=== PATIENT | female | born 1990 | race Caucasian/White ===

== ENCOUNTER 2020-08-15 10:32 | Outpatient (REF) | payer OTHER, MEDICAID, SELFPAY ==
--- NOTE | 2020-08-15 09:30 | PAPFT_PTH ---
PATIENT: Zainab Sanchez [facility] U#:[id number] AGE/SX: 29/F ROOM: RE08/15/[address]: Naomie Plascencia : 1990 BED: DIS: 08/15/2020 SPEC #: [id number] RECD: 08/16/20 13:08 STATUS: REBECCA REQ #: [id number] BARON: 08/15/20 09:[address]: Naomie Plascencia DEPT: [facility] Cytology RECD BY: Rosina Longoria ENTERED: 08/16/20 13:08 SP TYPE: PAPFT OTHR DR: Precious Nguyen Tissues: 1 - CX/ENDOCX FOR PAP SMEARS Procedures: PAP THIN PREP/[facility] Screening Comments: [id number] (CHLAMYDIA/GC)
[2020-08-17 15:40] LABS: Chlamydia Result Negative (Negative); GC Result Negative (Negative)
== END 2020-08-15 10:52 ==
LOC: NCHCN 10:32
PROVIDERS: PCP Nurse Practitioner Family; Visit Provider Nurse Practitioner Family
DX: Z00.00 Encounter for general adult medical examination without abnormal findings (principal); Z12.4 Encounter for screening for malignant neoplasm of cervix; Z01.419 Encounter for gynecological examination (general) (routine) without abnormal findings
CPT/HCPCS: 87491; 87591; 88142

== ENCOUNTER 2021-06-05 12:34 | Outpatient (REF) | payer MEDICAID, SELFPAY ==
[2021-06-06 11:49] LABS: COVID-19 RT-PCR UVMMC Result Negative (Negative)
== END 2021-06-05 12:35 | disposition home or self-care (01) ==
LOC: NCHCN 12:34
PROVIDERS: PCP Nurse Practitioner Family; Visit Provider Nurse Practitioner Family
DX: Z20.822 Contact with and (suspected) exposure to COVID-19 (principal)
CPT/HCPCS: U0003

== ENCOUNTER 2021-08-05 01:50 | Outpatient (CLI) | payer MEDICAID, SELFPAY ==
[2021-08-07 10:02] LABS: HBs Antibody, Quant >1000.0 mIU/mL (See Note); Hepatitis B Surface Ab Positive (See Note)
[2021-08-07 10:11] LABS: Hepatitis B Surface Ag Negative (Negative)
[2021-08-07 12:20] LABS: TB Interpretation Negative (Negative); TB1 Ag minus Nil 0.03 IU/ml
== END 2021-08-05 01:51 | disposition home or self-care (01) ==
LOC: LBO 01:50
PROVIDERS: PCP Nurse Practitioner Family; Visit Provider Dermatology
DX: L40.0 Psoriasis vulgaris (principal); Z79.899 Other long term (current) drug therapy
CPT/HCPCS: 36415; 86706; 87340; 86480

== ENCOUNTER 2021-09-17 08:49 | Outpatient (REF) | payer MEDICAID, SELFPAY ==
[2021-09-18 15:04] LABS: COVID-19 RT-PCR UVMMC Result Negative (Negative)
== END 2021-09-17 08:50 | disposition home or self-care (01) ==
LOC: NCHCN 08:49
PROVIDERS: PCP Nurse Practitioner Family; Visit Provider Nurse Practitioner Family
DX: Z20.822 Contact with and (suspected) exposure to COVID-19 (principal)
CPT/HCPCS: U0003

== ENCOUNTER 2022-02-04 03:21 | Outpatient (CLI) | payer MEDICAID, SELFPAY ==
[2022-02-06 12:09] LABS: TB Interpretation Negative (Negative); TB2 Ag minus Nil 0.01 IU/mL
== END 2022-02-04 03:22 | disposition home or self-care (01) ==
PROVIDERS: PCP Nurse Practitioner Family; Visit Provider Dermatology
DX: L40.9 Psoriasis, unspecified (principal)
CPT/HCPCS: 36415; 86480

== ENCOUNTER 2023-01-16 16:29 | Outpatient (REF) | payer MEDICAID, SELFPAY ==
[2023-01-16 21:18] LABS: HGB 14.8 g/dL (11.2-15.7); MCH 30.8 pg (27.0-33.0); MCHC 34.4 % (32.0-36.0); MCV 90 fL (80-95); MPV 9.3 fL (8.0-11.0); Platelet Count 508 10^3/uL (130-400); RDW 12.2 % (11.7-14.6); RDW-SD 40.5 fL; WBC 10.59 10^3/uL (4.4-10.8)
[2023-01-16 21:32] LABS: ALT 51 U/L (14-59); AST 41 U/L (15-37); Alkaline Phosphatase 76 U/L (46-116); BUN 11 mg/dL (7-18); Bilirubin, Total 0.3 mg/dL (0.2-1.0); CREATININE 0.9 mg/dL (0.55-1.02); Calcium 9.4 mg/dL (8.5-10.1); Chloride 104 mmol/L (98-107); Glucose 128 mg/dL (74-106); Potassium 4.3 mmol/L (3.5-5.1); Sodium 141 mmol/L (136-145); Total Protein 7.9 g/dL (6.4-8.2)
== END 2023-01-16 16:30 | disposition home or self-care (01) ==
LOC: NCHCN 16:29
PROVIDERS: PCP Nurse Practitioner Family; Visit Provider Nurse Practitioner Family
DX: Z00.00 Encounter for general adult medical examination without abnormal findings (principal); L40.9 Psoriasis, unspecified; L68.0 Hirsutism
CPT/HCPCS: 80053; 85027

== ENCOUNTER 2023-03-05 11:35 | Outpatient (CLI) | payer MEDICAID, SELFPAY ==
--- NOTE | 2023-03-05 11:33 | DI.RAD_ITS ---
Exam(s) XR KNEE RT 4V AP,LAT,MILTON,PAT EXAM: XR KNEE RT 4V AP,LAT,MILTON,PAT CLINICAL HISTORY: pain; okay to modify per Ana. TECHNIQUE: 2D digital imaging was performed. COMPARISON: No exams were available for comparison FINDINGS: Four views There is no evidence fracture but there is a joint effusion. On the lateral view there is a indentat ion of articular surface of 1 of the femoral condyles. This is sometimes seen with internal derangem ents such as ACL injury with associated pivot shift contusion. IMPRESSION: As above. If clinically indicated follow-up MRI can be performed for added sensitivity and specifici ty. DATA REPOSITORY: RADIATION DOSE DELIVERED:
== END 2023-03-05 11:36 | disposition home or self-care (01) ==
LOC: DIORS 11:35
PROVIDERS: PCP Nurse Practitioner Family; Referring Provider Nurse Practitioner Family; Visit Provider Physician Assistant
DX: M25.561 Pain in right knee (principal)
CPT/HCPCS: 73564

== ENCOUNTER → 2023-06-03 00:49 | Outpatient (CLI) | payer MEDICAID, SELFPAY ==
--- NOTE | 2023-06-03 07:15 | DI.MRI_ITS ---
Exam(s) MR LOWER JOINT RT WO EXAM: MR LOWER JOINT RT WO CLINICAL HISTORY: patellar instability,rt knee pain, [id number]. TECHNIQUE: Multiplanar multisequence MRI was performed. COMPARISON: CR XR KNEE RT 4V AP,LAT,MILTON,PAT from 03/05/2023 FINDINGS: BONES: There is no fracture or contusion pattern. JOINTS: Small joint effusion is present. Articular cartilage: Patellofemoral joint: Articular cartilage is unremarkable. Medial femoral tibial joint: Articular cartilage is unremarkable. Lateral femoral tibial joint: Articular cartilage is unremarkable. TENDONS: Extensor mechanism: Unremarkable. Medial retinaculum: Unremarkable. Lateral retinaculum: Unremarkable. Popliteus: Unremarkable. MUSCLES: Unremarkable. MENISCI: The medial meniscus is unremarkable. The lateral meniscus is unremarkable. SOFT TISSUES: Mild anterior subcutaneous edema. LIGAMENTS: Anterior Cruciate: Unremarkable. Posterior Cruciate: Unremarkable. Medial Collateral:Unremarkable. Lateral Collateral: Unremarkable. OTHER: IMPRESSION: No evidence tendon or ligament tear. No evidence of meniscal tear. Small joint effusion. DATA REPOSITORY:
== END ==
PROVIDERS: PCP Nurse Practitioner Family; Visit Provider Student in an Organized Health Care Education/Training Program
DX: M25.561 Pain in right knee (principal)
CPT/HCPCS: 73721

== ENCOUNTER 2023-12-24 21:41 | Outpatient (REF) | payer MEDICAID, SELFPAY ==
[2023-12-24 21:35] LABS: HCT 43.5 % (36.0-46.0); HGB 14.6 g/dL (11.2-15.7); MCH 30.5 pg (27.0-33.0); MCHC 33.6 % (32.0-36.0); MCV 91 fL (80-95); MPV 9.3 fL (8.0-11.0); Platelet Count 557 10^3/uL (130-400); RBC 4.79 10^6/uL (3.93-5.22); RDW 12.8 % (11.7-14.6); RDW-SD 42.6 fL; WBC 12.31 10^3/uL (4.4-10.8)
[2023-12-24 21:48] LABS: Iron 61 ug/dL (50-170); Total Iron Binding Capacity 319 ug/dL (250-450); Transferrin Sat 19 % (15-50)
[2023-12-24 22:01] LABS: ALT 56 U/L (14-59); AST 49 U/L (15-37); Albumin 4.1 g/dL (3.4-5.0); Alkaline Phosphatase 77 U/L (46-116); Anion Gap 13.9 mmol/L (3-11); BUN 9 mg/dL (7-18); Bilirubin, Total 0.3 mg/dL (0.2-1.0); CO2 25.1 mmol/L (21.0-32.0); CREATININE 0.9 mg/dL (0.55-1.02); Calcium 9.8 mg/dL (8.5-10.1); Chloride 101 mmol/L (98-107); Estimated GFR 87.65 (mL/min/1.73m2); Ferritin 146 ng/mL (8-252); Glucose 120 mg/dL (74-106); Potassium 4.2 mmol/L (3.5-5.1); Sodium 140 mmol/L (136-145); TSH (W/Ref FT4) 17.78 uIU/mL (0.36-3.74); Total Protein 8.1 g/dL (6.4-8.2)
[2023-12-24 22:07] LABS: Vitamin D 25 Total 30.2 ng/mL (30-100)
[2023-12-24 22:17] LABS: FREE T4 0.81 ng/dL (0.76-1.46)
== END 2023-12-24 21:42 | disposition home or self-care (01) ==
LOC: NCHCN 21:41
PROVIDERS: PCP Nurse Practitioner Family; Visit Provider Nurse Practitioner Family
DX: R53.83 Other fatigue (principal)
CPT/HCPCS: 80053; 82306; 85027; 82728; 83540; 83550; 84439; 84443

== ENCOUNTER 2024-02-19 14:45 | Outpatient (REF) | payer MEDICAID, SELFPAY ==
[2024-02-19 15:45] LABS: TSH (W/Ref FT4) 0.42 uIU/mL (0.36-3.74)
== END 2024-02-19 14:46 | disposition home or self-care (01) ==
LOC: NCHCN 14:45
PROVIDERS: PCP Nurse Practitioner Family; Visit Provider Nurse Practitioner Family
DX: E03.9 Hypothyroidism, unspecified (principal)
CPT/HCPCS: 84443

== ENCOUNTER 2024-05-19 21:58 | Outpatient (REF) | payer MEDICAID, SELFPAY ==
[2024-05-19 22:11] LABS: TSH (W/Ref FT4) 0.19 uIU/mL (0.36-3.74)
[2024-05-19 22:29] LABS: FREE T4 1.47 ng/dL (0.76-1.46)
== END 2024-05-19 21:59 | disposition home or self-care (01) ==
LOC: NCHCN 21:58
PROVIDERS: PCP Nurse Practitioner Family; Referring Provider Nurse Practitioner Family; Visit Provider Nurse Practitioner Family
DX: E03.9 Hypothyroidism, unspecified (principal)
CPT/HCPCS: 84439; 84443

== ENCOUNTER 2024-12-23 09:05 | Outpatient (REF) | payer BC, SELFPAY ==
[2024-12-23 15:18] LABS: Abs Immature Grans 0.03 10^3/uL (0.0-0.06); Absolute Basophil Count 0.04 10^3/uL (0.0-0.2); Absolute Eosinophil Count 0.12 10^3/uL (0.0-0.7); Absolute Lymphocyte Count 1.94 10^3/uL (1.2-3.4); Absolute Monocyte Count 0.64 10^3/uL (0.1-0.8); Absolute Neutrophil Count 5.89 10^3/uL (1.2-6.7); Basophils % 0.5 %; Eosinophils % 1.4 %; HCT 44.9 % (36.0-46.0); HGB 14.7 g/dL (11.2-15.7); Immature Grans % 0.3 %; Lymphocytes % 22.4 %; MCH 30.6 pg (27.0-33.0); MCHC 32.7 % (32.0-36.0); MCV 94 fL (80-95); MPV 9.3 fL (8.0-11.0); Monocytes % 7.4 %; Platelet Count 530 10^3/uL (130-400); RDW 12.5 % (11.7-14.6); RDW-SD 43.1 fL; WBC 8.66 10^3/uL (4.4-10.8)
[2024-12-23 15:39] LABS: ALT 50 U/L (14-59); AST 45 U/L (15-37); Albumin 3.9 g/dL (3.4-5.0); Alkaline Phosphatase 79 U/L (46-116); Anion Gap 9.8 mmol/L (3-11); BUN 11 mg/dL (7-18); Bilirubin, Total 0.35 mg/dL (0.2-1.0); CO2 28.2 mmol/L (21.0-32.0); CREATININE 0.8 mg/dL (0.55-1.02); Calcium 9.4 mg/dL (8.5-10.1); Chloride 102 mmol/L (98-107); Estimated GFR 100.33 (mL/min/1.73m2); Glucose 122 mg/dL (74-106); Potassium 4.3 mmol/L (3.5-5.1); Sodium 140 mmol/L (136-145); TSH (W/Ref FT4) 5.13 uIU/mL (0.36-3.74); Total Protein 7.9 g/dL (6.4-8.2)
[2024-12-23 22:58] LABS: T4, Free 1.3 ng/dL (0.8-2.2)
== END 2024-12-23 09:06 | disposition home or self-care (01) ==
LOC: NCHCN 09:05
PROVIDERS: PCP Nurse Practitioner Family; Visit Provider Nurse Practitioner Family
DX: E03.9 Hypothyroidism, unspecified (principal); D75.839 Thrombocytosis, unspecified; Z51.81 Encounter for therapeutic drug level monitoring
CPT/HCPCS: 80053; 84439; 84443; 85025

== ENCOUNTER 2025-02-02 07:45 | Outpatient (CLI) | payer BC, SELFPAY ==
--- NOTE | 2025-02-02 08:52 | W.CARDEVENT ---
Date of service: 02/02/25 Time of Service: 08:52 Cardiac Event Recorder Referring Provider:: Naomie Plascencia Indications:: Palpitations Cardiac Event Note: This is a cardiac event monitor. Patient was monitored for 13 days and 13 hours. Rhythm throughout was sinus with an average heart rate of 95. Minimum was 55, maximum 152. There were very rare isolated atrial and ventricular ectopic beats. There was no atrial fibrillation, no high-grade AV block, no pauses greater than 3 seconds. Reported symptoms correlated predominantly to sinus rhythm, rarely to sinus tachycardia rate less than 105
== END 2025-02-02 07:46 | disposition home or self-care (01) ==
LOC: CARDOPNVT 07:45
PROVIDERS: PCP Nurse Practitioner Family; Visit Provider Internal Medicine Cardiovascular Disease
DX: R00.2 Palpitations (principal)
CPT/HCPCS: 93248

== ENCOUNTER 2025-03-22 09:58 | Outpatient (REF) | payer BC, SELFPAY ==
[2025-03-22 16:22] LABS: Abs Immature Grans 0.04 10^3/uL (0.0-0.06); Absolute Basophil Count 0.03 10^3/uL (0.0-0.2); Absolute Eosinophil Count 0.16 10^3/uL (0.0-0.7); Absolute Lymphocyte Count 2.08 10^3/uL (1.2-3.4); Absolute Monocyte Count 0.56 10^3/uL (0.1-0.8); Absolute Neutrophil Count 6.93 10^3/uL (1.2-6.7); Basophils % 0.3 %; Eosinophils % 1.6 %; HGB 14.8 g/dL (11.2-15.7); Immature Grans % 0.4 %; Lymphocytes % 21.2 %; MCH 30.6 pg (27.0-33.0); MCHC 32.9 % (32.0-36.0); MCV 93 fL (80-95); MPV 9.4 fL (8.0-11.0); Monocytes % 5.7 %; Neutrophils % 70.8 %; Platelet Count 531 10^3/uL (130-400); RBC 4.84 10^6/uL (3.93-5.22); RDW 13.1 % (11.7-14.6); RDW-SD 44.8 fL
[2025-03-22 20:11] LABS: TSH (W/Ref FT4) 4.09 uIU/mL (0.36-3.74)
[2025-03-22 20:54] LABS: FREE T4 1.09 ng/dL (0.76-1.46)
== END 2025-03-22 09:59 | disposition home or self-care (01) ==
LOC: NCHCN 09:58
PROVIDERS: PCP Nurse Practitioner Family; Visit Provider Nurse Practitioner Family
DX: E03.9 Hypothyroidism, unspecified (principal); D75.839 Thrombocytosis, unspecified; Z51.81 Encounter for therapeutic drug level monitoring
CPT/HCPCS: 84439; 84443; 85025

== ENCOUNTER 2025-10-05 15:49 | Outpatient (REF) | payer BC, SELFPAY ==
[2025-10-05 21:42] LABS: Abs Immature Grans 0.02 10^3/uL (0.0-0.06); HCT 45.9 % (36.0-46.0); HGB 15.3 g/dL (11.2-15.7); Immature Grans % 0.2 %; MCH 30.9 pg (27.0-33.0); MCHC 33.3 % (32.0-36.0); MCV 93 fL (80-95); MPV 9.2 fL (8.0-11.0); Platelet Count 598 10^3/uL (130-400); RBC 4.95 10^6/uL (3.93-5.22); RDW 12.7 % (11.7-14.6); RDW-SD 43.1 fL; WBC 8.35 10^3/uL (4.4-10.8)
[2025-10-05 21:43] LABS: TSH (W/Ref FT4) 2.43 uIU/mL (0.55-4.78)
[2025-10-05 21:44] LABS: ALT 43 U/L (10-49); AST 50 U/L (<34); Albumin 4.6 g/dL (3.2-5.0); Alkaline Phosphatase 71 U/L (46-116); Anion Gap 8.2 mmol/L (3-11); BUN 12 mg/dL (9-23); Bilirubin, Total 0.2 mg/dL (0.2-1.2); CO2 27.8 mmol/L (20.0-31.0); Calcium 9.5 mg/dL (8.3-10.6); Chloride 104 mmol/L (98-107); Glucose 96 mg/dL (74-106); Potassium 4.4 mmol/L (3.5-5.1); Sodium 140 mmol/L (136-145); Total Protein 7.6 g/dL (5.7-8.2)
[2025-10-05 22:04] LABS: Hemoglobin A1C 5.4 % (<5.7)
[2025-10-05 22:11] LABS: Cholesterol 204 mg/dL (<200); HDL Cholesterol 64 mg/dL (>40)
== END 2025-10-05 15:50 | disposition home or self-care (01) ==
LOC: NCHCN 15:49
PROVIDERS: PCP Nurse Practitioner Family; Visit Provider Nurse Practitioner Family
DX: E03.9 Hypothyroidism, unspecified (principal); E66.9 Obesity, unspecified; D75.839 Thrombocytosis, unspecified; R74.8 Abnormal levels of other serum enzymes
CPT/HCPCS: 0027U; 80053; 80061; 81270; 83036; 84443; 85025